=== PATIENT | male | born 1970 | race Caucasian/White ===

== ENCOUNTER 2023-05-28 07:16 | Emergency (ER) | payer SELFPAY ==
[2023-05-28] MEDS ORDERED: Ketorolac 30 MG/ML SDV IM ONE (07:46)
[2023-05-28] MEDS ORDERED: Methocarbamol 1,000 MG/10 ML SDV IM ONE (07:47)
== END 2023-05-28 08:16 | disposition home or self-care (01) ==
LOC: KA.ED 07:16
DX: M54.40 Lumbago with sciatica, unspecified side (principal); Z87.828 Personal history of other (healed) physical injury and trauma
CPT/HCPCS: 96372; 99283; 99284; J1885; J2800